=== PATIENT | male | born 1940 | race Caucasian/White ===

== ENCOUNTER 2017-05-20 19:09 | Inpatient (IN) | payer OTHER, MEDICARE ==
[~2017-05-20] VITALS: Ht 185.4 cm; Wt 108.1 kg
[~2017-05-20 19:09] MED LIST: DIOV160T60
[2017-05-20 19:18] VITALS: BP 232/110; PULSE 82; RESP 16; TEMP 97.3; O2SAT 96
[2017-05-20 19:30] VITALS: BP 227/106; PULSE 86; RESP 16; TEMP 97.3; O2SAT 97
[2017-05-20] MEDS ORDERED: ASPI81CH CHEW (19:44)
[2017-05-20] MEDS ORDERED: PLAV75TA29 PO (19:44)
[2017-05-20] MEDS ORDERED: SIMV20TA PO (19:44)
[2017-05-20] MEDS ORDERED: MORPHINE SULFATE 2 MG/ML INJ IV PUSH ONE (20:00)
[2017-05-20] MEDS ORDERED: LABETALOL HCL 100 MG/20 ML VIAL IV PUSH ONE (20:00)
[2017-05-20] MEDS ORDERED: ONDANSETRON HCL 4 MG/2 ML VIAL IV PUSH ONE (20:00)
[2017-05-20] MEDS ORDERED: SODIUM CHLORIDE 0.9% FLUSH 10 ML FLUSH IVF PRN (20:00)
[2017-05-20 20:06] VITALS: RESP 16; O2SAT 97
--- NOTE | 2017-05-20 20:11 | PD ---
HPI Chief Complaint: Hypertension Time Seen by Provider: 19:37 Travel History International Travel<30 days: No Contact w/Intl Traveler<30days: No Traveled to known affect area: No History of Present Illness HPI The patient is a 77-year-old male who presents to the emergency department for headache and elevated blood pressure. The patient has a history of hypertension and was on antihypertensives, lisinopril 20 mg daily, prior to his carotid endarterectomies in August 2016. After the patient's bilateral carotid endarterectomies the patient's blood pressure dropped into the 60s and 70s systolic, he was taken off of his antihypertensives by his physician in [place], [place]. The patient states that his blood pressure elevated earlier tonight, he complained of a headache, as well as facial flushing. The patient does complain of a mild generalized headache that is throbbing in nature. He denies any chest pain, shortness breath, nausea, vomiting, or focal deficits. The patient does have a history of previous CVA as well as hypertension and hyperlipidemia. The patient's primary physician is located in [place] is Dr. Ernie Gutierrez. Some moderate, there are no current alleviating or exacerbating factors. 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 PFSH Past Medical History Hx Anticoagulant Therapy: Yes (ASPIRIN AND PLAVIX) Cerebrovascular Accident: Yes (MARCH 2016) Hypertension: Yes Tetanus Vaccination: > 5 Years Influenza Vaccination: Yes Past Surgical History Other Surgery: Yes (L CAROTID 05/2016, R CAROTID 07/2016) Social History Alcohol Use: Yes (OCCASIONAL) Tobacco Use: No Substance Use: No Allergies-Medications (Allergen,Severity, Reaction): Coded Allergies: No Known Allergies (Verified , 05/20/17) Reported Meds & Prescriptions Reported Meds & Active Scripts Active Reported Simvastatin 20 Mg Tab 20 Mg PO DAILY Plavix (Clopidogrel Bisulfate) 75 Mg Tab 75 Mg PO DAILY Aspirin 81 Mg Chew 81 Mg CHEW DAILY Review of Systems Except as stated in HPI: all other systems reviewed are Neg Eyes: No: Blurred Vision HENT: Positive: Headaches, No: Neck Pain Cardiovascular: No: Chest Pain or Discomfort Respiratory: No: Shortness of Breath Gastrointestinal: No: Nausea, Vomiting Musculoskeletal: No: Edema Neurologic: Positive: Headache, No: Weakness, Dizziness, Focal Abnormalities, Change in Mentation, Slurred Speech, Paresthesia, Sensory Disturbance Physical Exam Narrative GENERAL: Awake, alert, pleasant 77-year-old male who appears his stated age and is in no acute respiratory distress. SKIN: Focused skin assessment warm/dry. HEAD: Atraumatic. Normocephalic. EYES: Pupils equal and round. Pupils are 3 mm bilateral and reactive. EOMs are intact. ENT: No nasal bleeding or discharge. Mucous membranes pink and moist. NECK: Trachea midline. No JVD. CARDIOVASCULAR: Regular rate and rhythm. No murmur appreciated. Heart rate in the 80s. RESPIRATORY: No accessory muscle use. Clear to auscultation. Breath sounds equal bilaterally. GASTROINTESTINAL: Abdomen soft, non-tender, nondistended. No rebound tenderness. MUSCULOSKELETAL: No obvious deformities. No clubbing. No cyanosis. No edema. NEUROLOGICAL: Awake and alert. No obvious cranial nerve deficits. Motor grossly within normal limits. Nonfocal. Speech is slightly low in tone. PSYCHIATRIC: Appropriate mood and affect; insight and judgment normal. Data Data Last Documented VS Vital Signs Date Time Temp Pulse Resp B/P (MAP) Pulse Ox O2 Delivery O2 Flow Rate FiO2 05/20/17 21:40 73 16 171/81 (111) 96 Room Air 05/20/17 19:30 97.3 Orders Orders Electrocardiogram (05/20/17 19:55) Ckmb (Isoenzyme) Profile (05/20/17 19:55) Complete Blood Count With Diff (05/20/17 19:55) Comprehensive Metabolic Panel (05/20/17 19:55) Troponin I (05/20/17 19:55) Ecg Monitoring (05/20/17 19:55) Bilateral Bp Monitoring (05/20/17 19:55) Iv Access Insert/Monitor (05/20/17 19:55) Oximetry (05/20/17 19:55) Oxygen Administration (05/20/17 19:55) Sodium Chloride 0.9% Flush (Ns Flush) (05/20/17 20:00) Ct Brain W/O Iv Contrast(Rout) (05/20/17 ) Labetalol Inj (Trandate Inj) (05/20/17 20:00) Morphine Inj (Morphine Inj) (05/20/17 20:00) Ondansetron Inj (Zofran Inj) (05/20/17 20:00) Admit Order (Ed Use Only) (05/20/17 ) Vital Signs (Adult) Q4H (05/20/17 22:04) Diet Heart Healthy (05/21/17 Breakfast) Activity Oob With Assistance (05/20/17 22:04) Labs Laboratory Tests Test 05/20/17 20:05 White Blood Count 8.0 TH/MM3 Red Blood Count 5.94 MIL/MM3 Hemoglobin 16.7 GM/DL Hematocrit 50.5 % Mean Corpuscular Volume 85.0 FL Mean Corpuscular Hemoglobin 28.1 PG Mean Corpuscular Hemoglobin Concent 33.1 % Red Cell Distribution Width 23.4 % Platelet Count 208 TH/MM3 Mean Platelet Volume 9.8 FL Neutrophils (%) (Auto) 71.5 % Lymphocytes (%) (Auto) 15.1 % Monocytes (%) (Auto) 7.9 % Eosinophils (%) (Auto) 4.2 % Basophils (%) (Auto) 1.3 % Neutrophils # (Auto) 5.8 TH/MM3 Lymphocytes # (Auto) 1.2 TH/MM3 Monocytes # (Auto) 0.6 TH/MM3 Eosinophils # (Auto) 0.3 TH/MM3 Basophils # (Auto) 0.1 TH/MM3 CBC Comment DIFF FINAL Differential Comment Blood Urea Nitrogen 18 MG/DL Creatinine 0.94 MG/DL Random Glucose 117 MG/DL Total Protein 8.1 GM/DL Albumin 3.9 GM/DL Calcium Level 9.3 MG/DL Alkaline Phosphatase 88 U/L Aspartate Amino Transf (AST/SGOT) 12 U/L Alanine Aminotransferase (ALT/SGPT) 25 U/L Total Bilirubin 0.2 MG/DL Sodium Level 137 MEQ/L Potassium Level 3.9 MEQ/L Chloride Level 99 MEQ/L Carbon Dioxide Level 29.5 MEQ/L Anion Gap 9 MEQ/L Estimat Glomerular Filtration Rate 78 ML/MIN Total Creatine Kinase 47 U/L Troponin I 0.22 NG/ML MDM Medical Decision Making Medical Screen Exam Complete: Yes Emergency Medical Condition: Yes Medical Record Reviewed: Yes Interpretation(s) EKG reveals normal sinus rhythm with a rate 89. RSR prime V1. Nonspecific ST changes. CT of the brain reveals slight atrophic and small vessel ischemic changes without any evidence for acute hemorrhage or mass effect. Laboratory Tests Test 05/20/17 20:05 White Blood Count 8.0 TH/MM3 Red Blood Count 5.94 MIL/MM3 Hemoglobin 16.7 GM/DL Hematocrit 50.5 % Mean Corpuscular Volume 85.0 FL Mean Corpuscular Hemoglobin 28.1 PG Mean Corpuscular Hemoglobin Concent 33.1 % Red Cell Distribution Width 23.4 % Platelet Count 208 TH/MM3 Mean Platelet Volume 9.8 FL Neutrophils (%) (Auto) 71.5 % Lymphocytes (%) (Auto) 15.1 % Monocytes (%) (Auto) 7.9 % Eosinophils (%) (Auto) 4.2 % Basophils (%) (Auto) 1.3 % Neutrophils # (Auto) 5.8 TH/MM3 Lymphocytes # (Auto) 1.2 TH/MM3 Monocytes # (Auto) 0.6 TH/MM3 Eosinophils # (Auto) 0.3 TH/MM3 Basophils # (Auto) 0.1 TH/MM3 CBC Comment DIFF FINAL Differential Comment Blood Urea Nitrogen 18 MG/DL Creatinine 0.94 MG/DL Random Glucose 117 MG/DL Total Protein 8.1 GM/DL Albumin 3.9 GM/DL Calcium Level 9.3 MG/DL Alkaline Phosphatase 88 U/L Aspartate Amino Transf (AST/SGOT) 12 U/L Alanine Aminotransferase (ALT/SGPT) 25 U/L Total Bilirubin 0.2 MG/DL Sodium Level 137 MEQ/L Potassium Level 3.9 MEQ/L Chloride Level 99 MEQ/L Carbon Dioxide Level 29.5 MEQ/L Anion Gap 9 MEQ/L Estimat Glomerular Filtration Rate 78 ML/MIN Total Creatine Kinase 47 U/L Troponin I 0.22 NG/ML Differential Diagnosis Differential diagnosis includes hypertensive urgency, hypertensive emergency, hypertension, intracranial hemorrhage, acute kidney injury. Narrative Course IV was established, labs are drawn and sent, and the patient was placed on cardiac telemetry monitoring and continuous pulse oximetry monitoring. EKG was ordered and interpreted. CT the brain was obtained. The patient was administered labetalol 20 mg intravenously, morphine, Zofran, and was monitored in the emergency department. CT of the brain reveals slight atrophic and small vessel ischemic changes without any evidence for acute hemorrhage or mass effect. Troponin is positive at 0.22. Creatinine is within normal limits. The patient's systolic blood pressure came down into the 150s and 160s with a diastolic in the 80s and 90s. The headache had improved significantly. The patient does have hypertensive emergency with elevated troponin, no acute chest pain. He did take his aspirin and Plavix already today. The patient will be 23 hour observation, will need serial cardiac enzymes and institution of antihypertensive medications. The patient has [employer], therefore, [facility] were paged for admission. Physician Communication Physician Communication [facility] were paged for admission. I discussed the patient with Ying MORRIS, working with Dr. Regan, who agrees with 23 hour observation. Diagnosis Primary Impression: Hypertensive emergency Admitting Information Admitting Physician Requests: Observation Condition: Stable Andrea Nichols MD May 20, 2017 20:11
[2017-05-20 20:17] VITALS: BP_SYST 219; BP_SYST 227; BP_DIAS 106; BP_DIAS 107
[2017-05-20 20:21] LABS: AUTOMATED NEUTROPHIL # 5.8 TH/MM3 (1.8-7.7); BASOPHIL # 0.1 TH/MM3 (0-0.2); BASOPHIL % 1.3 % (0.0-2.0); EOSINOPHIL # 0.3 TH/MM3 (0-0.4); EOSINOPHIL % 4.2 % (0.0-4.0); HEMATOCRIT 50.5 % (39.0-51.0); LYMPH % 15.1 % (9.0-44.0); LYMPHOCYTE # 1.2 TH/MM3 (1.0-4.8); MEAN CORPUSCULAR HEMOGLOBIN 28.1 PG (27.0-34.0); MEAN CORPUSCULAR HGB CONC 33.1 % (32.0-36.0); MONO % 7.9 % (0.0-8.0); NEUT % 71.5 % (16.0-70.0); PLATELET COUNT 208 TH/MM3 (150-450); RED BLOOD COUNT 5.94 MIL/MM3 (4.50-5.90); RED CELL DISTRIBUTION WIDTH 23.4 % (11.6-17.2)
[2017-05-20 20:23] LABS: HEMO FLAGS DIFF FINAL
[2017-05-20 20:28] LABS: CHLORIDE 99 MEQ/L (98-107); POTASSIUM 3.9 MEQ/L (3.5-5.1); SODIUM (NA) 137 MEQ/L (136-145)
[2017-05-20 20:32] LABS: ANION GAP 9 MEQ/L (5-15); BICARBONATE 29.5 MEQ/L (21.0-32.0); BLOOD UREA NITROGEN 18 MG/DL (7-18)
[2017-05-20 20:34] LABS: ALT (GPT) 25 U/L (12-78)
[2017-05-20 20:35] LABS: AST (GOT) 12 U/L (15-37); GLOMERULAR FILTRATION RATE 78 ML/MIN (>89)
[2017-05-20 20:36] LABS: TOTAL BILIRUBIN ADULT 0.2 MG/DL (0.2-1.0)
[2017-05-20 20:37] LABS: ALKALINE PHOSPHATASE 88 U/L (45-117)
[2017-05-20 20:38] LABS: CREATINE KINASE 47 U/L (39-308)
[2017-05-20 20:46] VITALS: BP 156/78; PULSE 70; RESP 16; O2SAT 91
--- NOTE | 2017-05-20 21:33 | RADRPT ---
EXAM DATE/TIME: 05/20/2017 21:12 [facility] COMPARISON: No previous studies available for comparison. INDICATIONS : Elevated blood pressure. Cephalgia. RADIATION DOSE: 60.19 CTDIvol (mGy) MEDICAL HISTORY : Cardiovascular disease. SURGICAL HISTORY : Carotid endarterectomy. ENCOUNTER: Initial ACUITY: 1 day PAIN SCALE: 4/10 LOCATION: Left frontal TECHNIQUE: Multiple contiguous axial images were obtained of the head. Using automated exposure control and adj ustment of the mA and/or kV according to patient size, radiation dose was kept as low as reasonably a chievable to obtain optimal diagnostic quality images. DICOM format image data is available electro nically for review and comparison. FINDINGS: There is no evidence for intracranial hemorrhage, mass effect, mass lesions, or edema. The visualize d bony structures appear intact. Slight degree of brain atrophy is seen. Slight periventricular whit e matter changes are seen nonspecific mostly consistent with chronic small vessel ischemic changes. There are no signs of acute infarction for technique. CONCLUSION: Slight atrophic and small vessel ischemic changes without any evidence for acute hemorrhage or mass effect. Sourav Batista MD on May 20, 2017 at 21:30 Board Certified Radiologist. This report was verified electronically.
[2017-05-20 21:40] VITALS: BP 171/81; PULSE 73; RESP 16; O2SAT 96
[2017-05-20] MEDS ORDERED: NALOXONE HCL 0.4 MG/ML AMP IV PUSH PRN (22:15)
[2017-05-20] MEDS ORDERED: ONDANSETRON HCL 4 MG/2 ML VIAL IVP PRN (22:15)
[2017-05-20] MEDS ORDERED: ENALAPRILAT 2.5 MG/2 ML VIAL IV PUSH PRN (22:15)
[2017-05-20] MEDS ORDERED: SODIUM CHLORIDE 0.9% FLUSH 10 ML FLUSH IV FLUSH PRN (22:15)
[2017-05-20] MEDS ORDERED: ACETAMINOPHEN 325 MG TAB PO PRN (22:15)
[2017-05-21] VITALS: BP 179/88; PULSE 70; RESP 20; TEMP 96.8; O2SAT 96
[2017-05-21 04:00] VITALS: BP 116/65; PULSE 65; RESP 20; TEMP 96.4; O2SAT 95
[2017-05-21 06:38] LABS: AUTOMATED NEUTROPHIL # 4.9 TH/MM3 (1.8-7.7); BASOPHIL # 0.1 TH/MM3 (0-0.2); BASOPHIL % 0.9 % (0.0-2.0); EOSINOPHIL # 0.1 TH/MM3 (0-0.4); HEMATOCRIT 46.2 % (39.0-51.0); HEMO FLAGS DIFF FINAL; LYMPH % 22.5 % (9.0-44.0); LYMPHOCYTE # 1.7 TH/MM3 (1.0-4.8); MEAN CELL VOLUME 85.4 FL (80.0-100.0); MEAN CORPUSCULAR HEMOGLOBIN 27.6 PG (27.0-34.0); MEAN CORPUSCULAR HGB CONC 32.3 % (32.0-36.0); MONO % 9.9 % (0.0-8.0); NEUT % 64.7 % (16.0-70.0); PLATELET COUNT 208 TH/MM3 (150-450); RED BLOOD COUNT 5.41 MIL/MM3 (4.50-5.90); RED CELL DISTRIBUTION WIDTH 23.1 % (11.6-17.2); WHITE BLOOD COUNT 7.5 TH/MM3 (4.0-11.0)
[2017-05-21 06:44] LABS: POTASSIUM 3.8 MEQ/L (3.5-5.1)
[2017-05-21 06:49] LABS: BICARBONATE 30.4 MEQ/L (21.0-32.0)
[2017-05-21 08:00] VITALS: BP 105/59; PULSE 67; RESP 16; TEMP 96.9; O2SAT 93
[2017-05-21] MEDS ORDERED: SODIUM CHLORIDE 0.9% FLUSH 10 ML FLUSH IV FLUSH SCH (09:00)
[2017-05-21] MEDS ORDERED: PNEUMOCOCCAL POLYVALENT INJ 25 MCG/0.5 ML SYR IM ONE (09:00)
[2017-05-21] MEDS ORDERED: ASPIRIN 81 MG CHEW TAB CHEW SCH (09:30)
[2017-05-21] MEDS ORDERED: CLOPIDOGREL 75 MG TAB PO SCH (09:30)
[2017-05-21] MEDS ORDERED: METOPROLOL TARTRATE 25 MG TAB PO SCH (10:30)
--- NOTE | 2017-05-21 11:06 | HHI.HP ---
[facility] Service [facility] Primary Care Physician Non-Staff Admission Diagnosis hypertensive emergency, cephalgia, elevated troponin Diagnoses: (1) Hypertensive urgency Diagnosis: Principal (2) Headache Diagnosis: Principal (3) Elevated troponin Diagnosis: Principal Chief Complaint: elevated blood pressure, CORREIA Travel History International Travel<30 Days: No Contact w/Intl Traveler <30 Da: No Traveled to Known Affected Are: No History of Present Illness Written by Shazia Ferrara PA-C acting as scribe for Dr. Alba on 05/21/17 at 1106. 77-year-old male with history of CVA in March 2016 presents with complaint of elevated blood pressure. Patient states he checks his blood pressure daily because has a h/o high blood pressure but was taken off of medication by his physician because it had decreased. He states his blood pressure last night was 230/150 taken with automatic cuff. He states prior to checking his blood pressure he was experiencing a headache indicating over the left frontal bone. Describes it as "throbbing" stating it was a 9-10/10. He states he took 3 ibuprofen which helped partially. He denies any current headache. He denies any visual changes including blurred vision at that time. Denies any lightheadedness, chest pain, or shortness of breath. 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 Quit smoking cigarettes 50 years ago. Denies illicit drug use. Physical Exam Vital Signs Vital Signs Date Time Temp Pulse Resp B/P (MAP) Pulse Ox O2 Delivery O2 Flow Rate FiO2 05/21/17 08:00 96.9 67 16 105/59 (74) 93 05/21/17 04:00 96.4 65 20 116/65 (82) 95 05/21/17 00:00 96.8 70 20 179/88 (118) 96 05/20/17 21:40 73 16 171/81 (111) 96 Room Air 05/20/17 20:46 70 16 156/78 (104) 91 Room Air 05/20/17 20:45 16 05/20/17 20:17 227/106 (146) 219/107 (144) 05/20/17 20:06 16 97 Room Air 05/20/17 20:06 97 Room Air 05/20/17 19:34 16 97 Room Air 05/20/17 19:30 97.3 86 16 227/106 (146) 97 05/20/17 19:18 97.3 82 16 232/110 (150) 96 Physical Exam GENERAL: This is a pleasant well-nourished, well-developed patient, in no apparent distress. SKIN: No rashes, ecchymoses or lesions. Warm and dry. HEAD: Atraumatic. Normocephalic. EYES: Pupils equal round and reactive. No scleral icterus. ENT: Uvula midline. Airway patent. NECK: Trachea midline. No carotid bruits bilaterally. CARDIOVASCULAR: Regular rate and rhythm without murmurs, gallops, or rubs. RESPIRATORY: Clear to auscultation. Breath sounds equal bilaterally. No wheezes , rales, or rhonchi. GASTROINTESTINAL: Abdomen soft, non-tender, nondistended. MUSCULOSKELETAL: grossly intact ROM EXT: No clubbing, cyanosis, nor edema NEUROLOGICAL: Awake and alert. Five out of 5 muscle strength in bilateral upper and lower extremities. Normal speech. PSYCHIATRIC: Normal mood and affect. Laboratory Laboratory Tests Test 05/20/17 20:05 05/21/17 01:50 05/21/17 05:22 05/21/17 08:25 White Blood Count 8.0 7.5 Red Blood Count 5.94 5.41 Hemoglobin 16.7 14.9 Hematocrit 50.5 46.2 Mean Corpuscular Volume 85.0 85.4 Mean Corpuscular Hemoglobin 28.1 27.6 Mean Corpuscular Hemoglobin Concent 33.1 32.3 Red Cell Distribution Width 23.4 23.1 Platelet Count 208 208 Mean Platelet Volume 9.8 9.5 Neutrophils (%) (Auto) 71.5 64.7 Lymphocytes (%) (Auto) 15.1 22.5 Monocytes (%) (Auto) 7.9 9.9 Eosinophils (%) (Auto) 4.2 2.0 Basophils (%) (Auto) 1.3 0.9 Neutrophils # (Auto) 5.8 4.9 Lymphocytes # (Auto) 1.2 1.7 Monocytes # (Auto) 0.6 0.7 Eosinophils # (Auto) 0.3 0.1 Basophils # (Auto) 0.1 0.1 CBC Comment DIFF FINAL DIFF FINAL Differential Comment Blood Urea Nitrogen 18 20 Creatinine 0.94 1.20 Random Glucose 117 122 Total Protein 8.1 Albumin 3.9 Calcium Level 9.3 8.9 Alkaline Phosphatase 88 Aspartate Amino Transf (AST/SGOT) 12 Alanine Aminotransferase (ALT/SGPT) 25 Total Bilirubin 0.2 Sodium Level 137 141 Potassium Level 3.9 3.8 Chloride Level 99 101 Carbon Dioxide Level 29.5 30.4 Anion Gap 9 10 Estimat Glomerular Filtration Rate 78 59 Total Creatine Kinase 47 39 35 Troponin I 0.22 0.23 0.22 Result Diagram: 05/21/17 0522 05/21/17 0522 Imaging Last Impressions Head CT 05/20/17 0000 Signed Impressions: Service Date/Time: Saturday, May 20, 2017 21:12 - CONCLUSION: Slight atrophic and small vessel ischemic changes without any evidence for acute hemorrhage or mass effect. Sourav Batista MD Caprini VTE Risk Assessment Caprini VTE Risk Assessment: Mod/High Risk (score >= 2) Caprini Risk Assessment Model Point Value = 1 Point Value = 2 Point Value = 3 Point Value = 5 Age 41-60 Minor surgery BMI > 25 kg/m2 Swollen legs Varicose veins or History of unexplained or recurrent spontaneous Oral contraceptives or hormone replacement Sepsis (< 1 month) Serious lung disease, including pneumonia (< 1 month) Abnormal pulmonary function Acute myocardial infarction Congestive heart failure (< 1 month) History of inflammatory bowel disease Medical patient at bed rest Age 61-74 Arthroscopic surgery Major open surgery (> 45 min) Laparoscopic surgery (> 45 min) Malignancy Confined to bed (> 72 hours) Immobilizing plaster cast Central venous access Age >= 75 History of VTE Family history of VTE Factor V Leiden Prothrombin [id number] Lupus anticoagulant Anticardiolipin antibodies Elevated serum homocysteine Heparin-induced thrombocytopenia Other congenital or acquired thrombophilia Stroke (< 1 month) Elective arthroplasty Hip, pelvis, or leg fracture Acute spinal cord injury (< 1 month) Prophylaxis Regimen Total Risk Factor Score Risk Level Prophylaxis Regimen 0-1 Low Early ambulation 2 Moderate Order ONE of the following: *Sequential Compression Device (SCD) *Heparin 5000 units SQ BID 3-4 Higher Order ONE of the following medications: *Heparin 5000 units SQ TID *Enoxaparin/Lovenox 40 mg SQ daily (WT < 150 kg, CrCl > 30 mL/min) *Enoxaparin/Lovenox 30 mg SQ daily (WT < 150 kg, CrCl > 10-29 mL/min) *Enoxaparin/Lovenox 30 mg SQ BID (WT < 150 kg, CrCl > 30 mL/min) AND/OR *Sequential Compression Device (SCD) 5 or more Highest Order ONE of the following medications: *Heparin 5000 units SQ TID (Preferred with Epidurals) *Enoxaparin/Lovenox 40 mg SQ daily (WT < 150 kg, CrCl > 30 mL/min) *Enoxaparin/Lovenox 30 mg SQ daily (WT < 150 kg, CrCl > 10-29 mL/min) *Enoxaparin/Lovenox 30 mg SQ BID (WT < 150 kg, CrCl > 30 mL/min) AND *Sequential Compression Device (SCD) Assessment and Plan Assessment and Plan 77-year-old male presents with: Hypertensive urgency: BP 232/110 on arrival. Patient was given 20 mg IV Labetalol in the ED and received 2.5 mg IV enalapril last night. BP now 105/59 at 8 AM. Patient symptom-free currently. -Start metoprolol -Enalapril IV prn Headache: Attributed to hypertension. Head CT normal. Asymptomatic at this time. Elevated troponin: 0.22-->0.23-->0.22 in patient with no reported chest pain. Attributed to significant hypertension. EKG personally interpreted by Dr. Alba with no acute ST changes. No further cardiac workup necessary. H/o CVA: Continue aspirin, statin, and Plavix. DVT prophylaxis: SCDs This note was transcribed by danya Ferrara. I, Earl Alba, personally performed the history, physical exam, and medical decision making; and confirmed the accuracy of information in the transcribed note. Authenticated by Earl Alba on 1319 on . Patient was given an additional 2 L of IV fluid bolus to help counter the mild impairment of renal function. It is common for renal function to take a temporary decline after correcting hypertensive emergency, patient was counseled on all of this and to follow with his regular doctor to recheck his electrolytes and kidney function. He ambulated down the hallway casually and then briskly with no chest pain; had no chest pain throughout his entire hospitalization. Patient had met maximal benefit from hospitalization and is clinically stable for discharge. Discussed Condition With patient Physician Certification 2 Midnight Certification Type: Admission for Inpatient Services Order for Inpatient Services The services are ordered in accordance with Medicare regulations or non- Medicare payer requirements, as applicable. In the case of services not specified as inpatient-only, they are appropriately provided as inpatient services in accordance with the 2-midnight benchmark. Estimated LOS (days): 2 days is the estimated time the patient will need to remain in the hospital, assuming treatment plan goals are met and no additional complications. Post-Hospital Plan: Home Shazia Ferrara May 21, 2017 11:06 Earl Alba MD May 21, 2017 13:19
[2017-05-21 12:00] VITALS: BP 124/59; PULSE 67; RESP 18; TEMP 97.2; O2SAT 94
[2017-05-21] MEDS ORDERED: LIPI40TA PO (12:10)
--- NOTE | 2017-05-21 12:11 | HHI.DCPOC ---
Discharge Care Plan Diagnosis: (1) Hypertensive emergency (2) Headache Goals to Promote Your Health * To prevent worsening of your condition and complications * To maintain your health at the optimal level Directions to Meet Your Goals Take your medications as prescribed Follow your dietary instruction Follow activity as directed Keep your appointments as scheduled Take your immunizations and boosters as scheduled If your symptoms worsen call your PCP, if no PCP go to Urgent Care Center or Emergency Room Smoking is Dangerous to Your Health. Avoid second hand smoke Call the 24-hour hour crisis hotline for domestic abuse at Earl Alba MD May 21, 2017 12:11
[2017-05-21] MEDS ORDERED: SODIUM CHLOR 0.9% 1000 ML INJ 1,000 ML IV ONE ×2 (12:15→12:30)
--- NOTE | 2017-05-21 14:02 | EKG ---
Date Performed: 05/20/2017 Time Performed: 20:17:58 PTAGE: 77 years EKG: Sinus rhythm POSSIBLE RIGHT VENTRICULAR CONDUCTION DELAY MODERATE ST DEPRESSION ABNORMAL ECG NO PREVIOUS TRACING DOCTOR: Florin Pressley Interpretating Date/Time 05/21/2017 13:56:05
[2017-05-21 16:00] VITALS: BP 152/67; PULSE 75; RESP 16; TEMP 97.4; O2SAT 99
[2017-05-21] MEDS ORDERED: METO25TA3 PO (16:31)
[2017-05-22] MEDS ORDERED: PRAVASTATIN SOD 40 MG TAB PO SCH (09:00)
== END 2017-05-21 18:08 | disposition home or self-care (01) | DRG 305 ==
LOC: PHED 19:09 → PHEDA 22:05 → PH3A 23:11
PROVIDERS: ADMIT Hospitalist; ATTEND Hospitalist
DX: I16.1 Hypertensive emergency (principal); N28.9 Disorder of kidney and ureter, unspecified; R51 Headache; R74.8 Abnormal levels of other serum enzymes; I10 Essential (primary) hypertension; Z86.73 Personal history of transient ischemic attack (TIA), and cerebral infarction without residual deficits; Z79.02 Long term (current) use of antithrombotics/antiplatelets; Z79.82 Long term (current) use of aspirin; R49.0 Dysphonia; Z87.891 Personal history of nicotine dependence; Z23 Encounter for immunization
CPT/HCPCS: 70450; 80048; 80053; 82550; 84484; 85025; 90471; 90732; 93005; 96374; 96375; G0008; G0009; J2270; J2405; J7030